=== PATIENT | male | born 1980 | race Caucasian/White ===

== ENCOUNTER 2016-06-07 22:00 | Emergency (ER) | payer SELFPAY ==
[~2016-06-07] VITALS: Ht 188 cm; Wt 75.9 kg
[~2016-06-07 22:00] MED LIST: CYCL1TAB29 PO
[2016-06-07 22:08] VITALS: BP 132/79; PULSE 97; RESP 20; TEMP 98.2; O2SAT 100
[2016-06-07] MEDS ORDERED: ROBA750T PO (23:57)
--- NOTE | 2016-06-07 23:58 | PD ---
HPI Chief Complaint: Pain: Acute or Chronic Time Seen by Provider: 23:13 Travel History International Travel<30 days: No Contact w/Intl Traveler<30days: No Traveled to known affect area: No History of Present Illness HPI Patient is a 35 yo male presenting to the ED with a chief complaint of muscle cramps. He states he has had the cramps for the past couple of months but they have been gradually worsening. Multiple muscle groups are involved most notably his mid back, lower legs, forearms, hands, neck, and right chest. He admits to previous back injuries but denies any therapeutic treatment. 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 He states he has tried controlling the symptoms with a diet high in fresh fruits and vegetables but has not experienced any improvement. He was recently treated in the ED in March and and again in April with normal electrolytes and CBC during workup. He does not have a primary care physician since he no longer has insurance. He states he quite all alcohol and drug use three weeks prior. [facility] Past Medical History Asthma: Yes Cancer: Yes (SKIN) COPD: No Diabetes: No Diminished Hearing: No Immunizations Current: No ?: Not Past Surgical History Other Surgery: Yes (SKIN CANCER REMOVED. ) Social History Alcohol Use: Yes (6 PACK DAILY) Tobacco Use: Yes (1 PPD) Substance Use: Yes Allergies-Medications (Allergen,Severity, Reaction): Coded Allergies: No Known Allergies (Verified , 06/07/16) Reported Meds & Prescriptions Reported Meds & Active Scripts Active Robaxin (Methocarbamol) 750 Mg Tab 1,500 Mg PO TID 7 Days Review of Systems Except as stated in HPI: all other systems reviewed are Neg General / Constitutional: No: Fever, Chills, Weight Gain, Weight Loss Respiratory: No: Shortness of Breath Gastrointestinal: No: Vomiting, Abdominal Pain, Changes in Bowel Habits Musculoskeletal: Positive: Myalgias, Cramping, Pain, No: Arthralgias, Limited ROM, Weakness, Edema Neurologic: No: Weakness, Headache Physical Exam Narrative GENERAL: AAO x3, in no acute distress SKIN: Warm and dry. HEAD: Atraumatic. Normocephalic. EYES: Pupils equal and round. No scleral icterus. No injection or drainage. ENT: No nasal bleeding or discharge. Mucous membranes pink and moist. NECK: Trachea midline. No JVD. CARDIOVASCULAR: Regular rate and rhythm. RESPIRATORY: No accessory muscle use. Clear to auscultation. Breath sounds equal bilaterally. GASTROINTESTINAL: Abdomen soft, non-tender, nondistended. Hepatic and splenic margins not palpable. MUSCULOSKELETAL: Extremities without clubbing, cyanosis, or edema. No obvious deformities. Nontender to palpation NEUROLOGICAL: Awake and alert. No obvious cranial nerve deficits. Motor grossly within normal limits. Five out of 5 muscle strength in the arms and legs. Normal speech. PSYCHIATRIC: Appropriate mood and affect; insight and judgment normal. Data Data Last Documented VS Vital Signs Date Time Temp Pulse Resp B/P Pulse Ox O2 Delivery O2 Flow Rate FiO2 06/07/16 22:08 98.2 97 20 132/79 100 Orders Methocarbamol (Robaxin) (06/08/16 00:00) Ketorolac Inj (Toradol Inj) (06/08/16 00:00) [facility] Medical Decision Making Medical Screen Exam Complete: Yes Emergency Medical Condition: Yes Medical Record Reviewed: Yes Differential Diagnosis Muscle spasms, radiculopathic pain, hypocalcemia Narrative Course Patient's workup from ED presentation less than one month ago was WNL and are likely unchanged. His symptoms have improved with muscle relaxants and pain control in the past and will likely respond again. He was given Toradol and Robaxin and sent home with a script for Robaxin and instructed to follow up with a primary care physician or contact Patient Assistance. Diagnosis Primary Impression: Cramps, muscle, general Referrals: [facility] 2 days Patient Assistance Program 2 days Additional Instructions: You have a choice when it comes to health care, and we are glad that you chose [facility]. Hopefully, we have met your expectations on today's visit. You are welcome to return to [facility] at any time, as we are committed to meeting the health care needs of our community. Med/Other Pt SpecificInfo: Prescription(s) given Scripts Methocarbamol (Robaxin)750 Mg Tab1,500 Mg PO TID 7 Days Ref 0 Prov:Derek Pandey MD 06/07/16 Disposition: 01 DISCHARGE HOME Condition: Stable Derek Pandey MD Jun 07, 2016 23:58 Derek Pandey MD Jun 07, 2016 23:58
[2016-06-08] MEDS ORDERED: METHOCARBAMOL 500 MG TAB PO ONE
[2016-06-08] MEDS ORDERED: KETOROLAC TROMETHAMINE 60 MG/2 ML (IM) VIAL IM ONE
== END 2016-06-08 00:40 | disposition home or self-care (01) ==
LOC: PHED 22:00
DX: R25.2 Cramp and spasm (principal); M62.830 Muscle spasm of back; F17.210 Nicotine dependence, cigarettes, uncomplicated
CPT/HCPCS: 96372; 99283; J1885